=== PATIENT | female | born 1960 | race Caucasian/White ===

== ENCOUNTER 2019-02-06 12:50 | Day surgery (SDC) | payer BC ==
[2019-02-06] MEDS: CEFAZOLIN 2 GM/50 ML (PMX) 50 ML IVPB (14:00)
[2019-02-06] MEDS: SOD CHLORIDE 0.9% 1,000 ML IV (14:45)
[2019-02-06] MEDS ORDERED: PROPOFOL 20 ML (15:34)
[2019-02-06] MEDS ORDERED: LIDOCAINE 2% (SDV) 5 ML INJ (15:36)
[2019-02-06] MEDS ORDERED: ROCURONIUM 50 MG INJ (15:36)
[2019-02-06] MEDS ORDERED: DEXAMETHASONE 4 MG/ML 5 ML INJ (15:38)
[2019-02-06] MEDS ORDERED: CEFAZOLIN 1 GM INJ (15:39)
[2019-02-06] MEDS ORDERED: ONDANSETRON 4 MG INJ (15:39)
[2019-02-06] MEDS: BUPIVACAINE 0.25% (MPF) 30 ML INJ (16:11)
[2019-02-06] MEDS ORDERED: SUGAMMADEX SODIUM 200 MG/2 ML VIAL IV (16:33)
[2019-02-06] MEDS ORDERED: hydrALAzine 20 MG INJ IV (17:00)
[2019-02-06] MEDS ORDERED: DIPHENHYDRAMINE 50 MG INJ IV (17:00)
[2019-02-06] MEDS ORDERED: METOCLOPRAMIDE 10 MG INJ IV (17:00)
[2019-02-06] MEDS ORDERED: MEPERIDINE 25 MG INJ IV (17:00)
[2019-02-06] MEDS ORDERED: ONDANSETRON 4 MG INJ IV ×2 (17:00)
[2019-02-06] MEDS ORDERED: morphine 4 MG/ML VIAL IV (17:00)
[2019-02-06] MEDS ORDERED: KETOROLAC 30 MG INJ IV ×2 (17:00)
[2019-02-06] MEDS ORDERED: EPHEDrine 25 MG/5 ML SYG IV (17:00)
[2019-02-06] MEDS ORDERED: ALBUTEROL 0.083% (NEB) 2.5 MG/3 ML AMP HHN (17:00)
[2019-02-06] MEDS ORDERED: LABETALOL HCL 20MG INJ IV (17:00)
[2019-02-06] MEDS ORDERED: HYDROmorphONE 1 MG/5 ML IV SYRINGE IV ×3 (17:00)
[2019-02-06] MEDS ORDERED: FENTAnyl 50 MCG/ML VIAL IV ×3 (17:00)
[2019-02-06] MEDS ORDERED: OXYCODONE/ACETAMINOPHEN (5/325) TAB PO ×2 (17:00)
[2019-02-06] MEDS ORDERED: HYDROCODONE/APAP (5/325) TAB PO ×2 (17:00)
[2019-02-06] MEDS ORDERED: hydrALAzine 20 MG INJ (17:04)
[2019-02-06] MEDS ORDERED: IBUPROFEN 600 MG TAB PO (20:00)
== END 2019-02-06 18:25 | disposition home or self-care (01) ==
LOC: SDS 12:50
DX: K80.10 Calculus of gallbladder with chronic cholecystitis without obstruction (principal); I10 Essential (primary) hypertension; E66.01 Morbid (severe) obesity due to excess calories; Z68.41 Body mass index [BMI] 40.0-44.9, adult; F17.210 Nicotine dependence, cigarettes, uncomplicated; Z79.82 Long term (current) use of aspirin
CPT/HCPCS: 47562; 88304